=== PATIENT | female | born 1950 | race African-American/Black ===

== ENCOUNTER → 2016-10-23 | Outpatient (CLI) | payer OTHER ==
[~2016-10-23] MED LIST: 1-ME1LIQ PO; ALBUAER3 INH; ATOR40TA16 PO; AZIT500T2 PO; FLUT50SP EACH NARE; KETO60IN6 IM; LISI-515 PO; LOPR50TA PO; METH125I2 IM; NITR1SUB2 SL
[2016-10-23 09:56] LABS: AUTOMATED NEUTROPHIL # 2.9 TH/MM3 (1.8-7.7); BASOPHIL # 0.1 TH/MM3 (0-0.2); BASOPHIL % 1.1 % (0.0-2.0); EOSINOPHIL # 0.2 TH/MM3 (0-0.4); EOSINOPHIL % 3.4 % (0.0-4.0); HEMATOCRIT 37.6 % (35.0-46.0); HEMO FLAGS DIFF FINAL; LYMPH % 33.1 % (9.0-44.0); LYMPHOCYTE # 1.7 TH/MM3 (1.0-4.8); MEAN CELL VOLUME 86.1 FL (80.0-100.0); MEAN CORPUSCULAR HEMOGLOBIN 28.4 PG (27.0-34.0); MONO % 6.6 % (0.0-8.0); NEUT % 55.8 % (16.0-70.0); PLATELET COUNT 227 TH/MM3 (150-450); RED BLOOD COUNT 4.37 MIL/MM3 (4.00-5.30); RED CELL DISTRIBUTION WIDTH 13.6 % (11.6-17.2); WHITE BLOOD COUNT 5.3 TH/MM3 (4.0-11.0)
[2016-10-23 10:35] LABS: ALKALINE PHOSPHATASE 86 U/L (45-117); ALT (GPT) 20 U/L (10-53); ANION GAP 6 MEQ/L (5-15); AST (GOT) 16 U/L (15-37); BICARBONATE 29.8 MEQ/L (21.0-32.0); BLOOD UREA NITROGEN 13 MG/DL (7-18); CHLORIDE 106 MEQ/L (98-107); GLOMERULAR FILTRATION RATE 85 ML/MIN (>89); GLUCOSE,FASTING 100 MG/DL (74-99); HDL CHOLESTEROL 51.7 MG/DL (40.0-60.0); LDL CHOLESTEROL 87 MG/DL (0-99); POTASSIUM 4.4 MEQ/L (3.5-5.1); SODIUM (NA) 142 MEQ/L (136-145); TOTAL BILIRUBIN ADULT 0.8 MG/DL (0.2-1.0)
== END ==
LOC: CLAB 09:33
PROVIDERS: ATTEND Family Medicine
DX: I25.10 Atherosclerotic heart disease of native coronary artery without angina pectoris (principal); F32.9 Major depressive disorder, single episode, unspecified; I10 Essential (primary) hypertension; E66.9 Obesity, unspecified
CPT/HCPCS: 36415; 80053; 80061; 84443; 85025